=== PATIENT | female | born 1995 | race Caucasian/White ===

== ENCOUNTER → 2020-06-03 | Outpatient (CLI) | payer BC ==
--- NOTE | 2020-06-03 13:13 | Diagnostic Imaging Report ---
INDICATION: Assessment during normal . TECHNIQUE: Multiple real-time grayscale images were obtained over the gravid uterus. COMPARISON: None FINDINGS: Single viable intrauterine , currently in a cephalic presentation. Placenta is anterior without previa. Normal amount of amniotic fluid. Visualized anatomical assessment is unremarkable. There is visualization of the kidneys, bladder, stomach, intracranial structures, four-chambered heart, three-vessel cord and insertion site along the spine, appearing unremarkable. Biometrical measurements are as follows: Biparietal 6.22 cm, age 25 weeks 2 days. Head circumference 22.92 cm, age 25 weeks 0 days. Abdominal circumference 20.36 cm, age 25 weeks 0 days. Femur length 4.31 cm, age 24 weeks 1 days. Sonographic estimate age: 24 weeks 6 days. Sonographic estimated date of delivery: 09/17/20. Estimated Weight: 721 gm (+/- 105 gm). LMP percentile: 32%. heart rate: 147 beats per minute. number: 1 of 1. IMPRESSION: 1. Single viable intrauterine , currently in a cephalic presentation. Sonographic estimated age 24 weeks 6 days for estimated date of delivery September 17, 2020. No abnormalities are demonstrated at this time. Dictated by: Dictated on workstation # [id number]
== END ==
LOC: RAD 09:57
PROVIDERS: ATTEND Obstetrics & Gynecology
DX: Z34.02 Encounter for supervision of normal first pregnancy, second trimester (principal); Z3A.24 24 weeks gestation of pregnancy
CPT/HCPCS: 76805

== ENCOUNTER 2020-08-19 12:11 | Outpatient (CLI) | payer BC ==
[~2020-08-19] VITALS: Ht 165.1 cm; Wt 77.0 kg
[2020-08-19 12:45] VITALS: BP 106/66
[2020-08-19 12:52] LABS: BILIRUBIN,URINE NEGATIVE (NEGATIVE); CLARITY,URINE CLEAR; COLOR,URINE YELLOW; GLUCOSE, URINE (UA) NEGATIVE (NEGATIVE); KETONES,URINE NEGATIVE (NEGATIVE); LEUKOCYTE ESTERASE ,URINE 2+ (NEGATIVE); NITRITE,URINE NEGATIVE (NEGATIVE); PH,URINE 7.5 (5-9); PROTEIN,URINE NEGATIVE (NEGATIVE)
[2020-08-19 13:02] LABS: BACTERIA,URINE MODERATE /HPF
[2020-08-19] MEDS ORDERED: NS IV 1000 ML 1,000 ML IV SCH (14:00)
[2020-08-19] MEDS ORDERED: ceFAZolin INJECTION 1,000 MG in WATER (STERILE) FOR INJECTION 10 ML IV ONE (14:00)
[2020-08-19] MEDS ORDERED: ACETAMINOPHEN 500 MG TAB (TYLENOL) PO ONE (14:00)
== END 2020-08-19 16:15 | disposition home or self-care (01) ==
LOC: WSo 12:11 → LDRP 12:13 → WSo 16:15
PROVIDERS: ATTEND Obstetrics & Gynecology
DX: O26.899 Other specified pregnancy related conditions, unspecified trimester (principal); R10.9 Unspecified abdominal pain; Z3A.00 Weeks of gestation of pregnancy not specified
CPT/HCPCS: 81000; 87088; 96361; 96374; G0463; 99213

== ENCOUNTER 2020-09-14 11:03 | Inpatient (IN) | payer BC ==
[2020-09-14] VITALS (15 sets, daily range): BP systolic 112–146; BP diastolic 58–84
[~2020-09-14] VITALS: Ht 162 cm; Wt 78.0 kg
[2020-09-14] MEDS ORDERED: D5 LR IV SOLUTION 1,000 ML IV ONE (12:12)
[2020-09-14 12:47] LABS: BASOPHILS % (AUTO) 0 % (0-10); EOSINOPHILS # (AUTO) 0.2 10^3/uL (0.0-0.3); EOSINOPHILS % (AUTO) 2 % (0-10); HEMATOCRIT 32 % (35-52); LYMPHOCYTES # (AUTO) 1.6 10^3/uL (1.0-4.0); LYMPHOCYTES % (AUTO) 16 % (12-44); MEAN CORPUSCULAR HEMOGLOBIN 26 pg (25-34); MEAN CORPUSCULAR HGB CONC 31 g/dL (32-36); MEAN CORPUSCULAR VOLUME 82 fL (80-99); MONOCYTES # (AUTO) 0.7 10^3/uL (0.0-1.0); MONOCYTES % (AUTO) 7 % (0-12); NEUTROPHILS # (AUTO) 7.6 10^3/uL (1.8-7.8); NEUTROPHILS % (AUTO) 75 % (42-75); PLATELET COUNT 263 10^3/uL (130-400); WHITE BLOOD COUNT 10.2 10^3/uL (4.3-11.0)
[2020-09-14] MEDS ORDERED: AMPICILLIN FOR IV USE 2,000 MG in WATER (STERILE) FOR INJECTION 14.8 ML IV ONE (13:29)
[2020-09-14] MEDS ORDERED: D5 LR IV SOLUTION 1,000 ML IV SCH (13:30)
[2020-09-14 13:39] LABS: BILIRUBIN,URINE NEGATIVE (NEGATIVE); CLARITY,URINE SL CLOUDY; COLOR,URINE YELLOW; GLUCOSE, URINE (UA) NEGATIVE (NEGATIVE); KETONES,URINE NEGATIVE (NEGATIVE); LEUKOCYTE ESTERASE ,URINE 2+ (NEGATIVE); NITRITE,URINE NEGATIVE (NEGATIVE); PROTEIN,URINE NEGATIVE (NEGATIVE)
[2020-09-14] MEDS ORDERED: CATHETER FLUSH 10 ML SYR IV SCH (14:00)
[2020-09-14 14:02] LABS: BACTERIA,URINE MODERATE /HPF; WBC,URINE 25-50 /HPF
--- NOTE | 2020-09-14 14:22 | History & Physical-OB ---
OB - Chief Complaint & HPI Date/Time Date of Admission: Date of Admission: Sep 14, 2020 at 13:59 Date seen by a Provider: Sep 14, 2020 Time Seen by a Provider: 14:10 Chief Complaint/History OB-Reason for Admission/Chief: Onset of Labor Hx : 2 Hx Para: 1 Expected Date of Delivery: Sep 17, 2020 Gestational Age in Weeks: 39 Gestational Age in Days: 4 Other reason for admission: Patient admitted in active labor, has not been seen and missed appointments since end of July. Admission Nurse Assessment Rev: Yes History of Labs O neg Antibody neg RI RPR NR HBsAg NR HIV NR GC neg GBS unknown Allergies and Home Medications Allergies Coded Allergies: No Known Drug Allergies (Unverified , 12/30/10) Home Medications No Active Prescriptions or Reported Meds Patient Home Medication List Home Medication List Reviewed: Yes OB - History Hx of Present Care: Yes Ultrasounds: Normal mid trimester US Obstetrical Complications: None Medical Complications: None Patient Past Medical History N/a Social History/Family History 2nd Hand Smoke Exposure: No OB - Admission Exam Physical Exam Vitals: Vital Signs 09/14/20 11:20 Temp 36.6 Pulse 92 Resp 16 Pulse Ox 98 O2 Delivery Room Air HEENT: NCAT Heart: Rhythm Normal Lungs: Clear Abdomen: Gravid Extremities: Normal Reflexes: Normal Cervical Dilatation: 3cm Effacement: 75% Station: -1 Membranes: Intact Heart Rate: 130's Accelerations: Accelerations Present Decelerations: No Decelerations Short Term Variability: Present Digital Pre Press Operator Variability: Average (6-25) Contractions on Admission: < 5 Minutes Apart Intensity: Mild Labs Laboratory Tests Test 09/14/20 11:15 09/14/20 12:30 Range/Units Urine Color YELLOW Urine Clarity SL CLOUDY Urine pH 6.0 5-9 Urine Specific [place] 1.025 H 1.016-1.022 Urine Protein NEGATIVE NEGATIVE Urine Glucose (UA) NEGATIVE NEGATIVE Urine Ketones NEGATIVE NEGATIVE Urine Nitrite NEGATIVE NEGATIVE Urine Bilirubin NEGATIVE NEGATIVE Urine Urobilinogen 0.2 < = 1.0 MG/DL Urine Leukocyte Esterase 2+ H NEGATIVE Urine RBC (Auto) NEGATIVE NEGATIVE Urine RBC NONE /HPF Urine WBC 25-50 H /HPF Urine Squamous Epithelial Cells 10-25 H /HPF Urine Crystals NONE /LPF Urine Bacteria MODERATE H /HPF Urine Casts NONE /LPF Urine Mucus MODERATE H /LPF Urine Culture Indicated YES White Blood Count 10.2 4.3-11.0 10^3/uL Red Blood Count 3.92 3.80-5.11 10^6/uL Hemoglobin 10.0 L 11.5-16.0 g/dL Hematocrit 32 L 35-52 % Mean Corpuscular Volume 82 80-99 fL Mean Corpuscular Hemoglobin 26 25-34 pg Mean Corpuscular Hemoglobin Concent 31 L 32-36 g/dL Red Cell Distribution Width 14.4 10.0-14.5 % Platelet Count 263 130-400 10^3/uL Mean Platelet Volume 11.0 9.0-12.2 fL Immature Granulocyte % (Auto) 0 % Neutrophils (%) (Auto) 75 42-75 % Lymphocytes (%) (Auto) 16 12-44 % Monocytes (%) (Auto) 7 0-12 % Eosinophils (%) (Auto) 2 0-10 % Basophils (%) (Auto) 0 0-10 % Neutrophils # (Auto) 7.6 1.8-7.8 10^3/uL Lymphocytes # (Auto) 1.6 1.0-4.0 10^3/uL Monocytes # (Auto) 0.7 0.0-1.0 10^3/uL Eosinophils # (Auto) 0.2 0.0-0.3 10^3/uL Basophils # (Auto) 0.0 0.0-0.1 10^3/uL Immature Granulocyte # (Auto) 0.0 0.0-0.1 10^3/uL OB - Assessment/Plan/Diagnosis Assessment Assessment: active labor Admission Dx 24 yo @ 39 weeks Active labor Non compliance- missed appointments GBS unknown Admission Status: Inpatient Order (span 2 midnights) Reason for Inpatient Admission: Active labor at 39 weeks Plan Plan: Expectant Management LEDA ANN DO Sep 14, 2020 14:22
[2020-09-14] MEDS ORDERED: OXYTOCIN PRE-MIX DRIP 500 ML IV ONE ×2 (14:31→17:41)
[2020-09-14] MEDS ORDERED: LIDOCAINE/EPI 2% 1:200,00 (XYLOCAINE) 20 ML VIAL ONE (14:39)
[2020-09-14] MEDS ORDERED: PREN1TAB79 PO (16:32)
[2020-09-14] MEDS: OXYTOCIN PRE-MIX DRIP 500 ML IV SCH ×6 (17:05→21:00)
[2020-09-14] MEDS ORDERED: AMPICILLIN FOR IV USE 1,000 MG in WATER (STERILE) FOR INJECTION 7.4 ML IV SCH (17:30)
[2020-09-14] MEDS ORDERED: TETANUS,DIPTH,PERTUSS P/F (BOOSTRIX) 0.5 ML VIAL IM ONE (17:45)
[2020-09-14] MEDS ORDERED: BENZOCAINE/MENTHOL (DERMOPLAST) 56 ML CAN TP PRN (17:45)
[2020-09-14] MEDS ORDERED: DIBUCAINE 1% OINTMENT 30 GM TUBE TOP PRN (17:45)
[2020-09-14] MEDS ORDERED: MEASLES,MUMPS,RUBELLA 1 EA INJ SQ ONE (17:45)
[2020-09-14] MEDS ORDERED: HYDROcodone/APAP 5 MG/325 MG (LORTAB) TAB PO PRN (17:45)
[2020-09-14] MEDS ORDERED: WITCH HAZEL(TUCKS) 40 EA JAR TOP PRN (17:45)
--- NOTE | 2020-09-14 18:08 | OB Labor & Delivery Record ---
L&D History Date of Service Date of Service: Sep 14, 2020 History Expected Date of Delivery: Sep 17, 2020 Gestational Age in Weeks: 39 Hx : 2 Hx Para: 1 Complications Operative Indications (Cesarea: N/A-Vaginal Delivery Intrapartal Events: None L&D Stage1 Monitors and Tracing Monitor Mode: External Heart Rate: 140 Monitor Decelerations: None Catering And Events Manager Variability: Average (6-10) Short Term Variability: Present Presentation: Vertex Vital Signs VS - Last 72 Hours, by Label 09/14/20 09/14/20 11:20 11:45 Temp 36.6 36.0 Pulse 92 122 Resp 16 16 Pulse Ox 98 100 O2 Delivery Room Air Room Air Rupture of Membranes Spontaneous Ruture of Membrane: Yes Amniotic Membrane Fluid Desc.: Meconium Stained Vaginal Bleeding Description: Normal Show Progress/Notes Patient presented in active labor, she progressed without augmentation to complete and +3 station without any analgesia. L&D Stage2 Stage Two Stage II Date: Sep 14, 2020 Monitors and Tracing Monitor Mode: External Heart Rate: 140 Monitor Accelerations: Uniform Monitor Decelerations: None Snf Variability: Average (6-10) Short Term Variability: Present Position: Right Occiput Anterior Presentation: Vertex Cord Descript/Complications Cord Vessel Description: 3 Vessels Delivery Type Delivery Method: Spontaneous Vaginal Anterior Shoulder: Left Episiotomy/Perineal Laceration Episiotomy Description: Periurethral Extnsion/lac, Perineal Extension/lac, 2nd degree Degree (describe repair) Lacerations bilateral periurethral and midline perineal repaired using 3-0 rapide suture in usual fashion. Condition of Delivery 1 minute Comment: 8 5 minute Comment: 9 Notes Live female weight 7lbs 14 oz Condition of Condition of : Living Exam: No Observed Abnormalities Resuscitation Resuscitation: N/A - Spontaneous Resp L&D Stage3 Stage Three Stage III Date: Sep 14, 2020 Pictocin Pitocin Administration Comment: 30 mu wide open after delivery of placenta Placenta Delivery Placenta Delivery: Spontaneous Delivery Summary Summary Estimated blood loss (mL): 350 Attending at delivery: Leda Ann DO Condition of Delivery Examined: Cervix Examined, Uterus Explored Post Hemorrhage: No Condition of Mother stable Condition of Infant (s) stable LEDA ANN DO Sep 14, 2020 18:08
--- NOTE | 2020-09-14 18:10 | Discharge Inst-Women's Service ---
Discharge Inst-Women's Serv Depart Medication/Instructions New, Converted or Re-Newed RX: RX on Chart Final Diagnosis PPD 1 NVD Problems Reviewed?: Yes Consults/Follow Up Additional Follow Up: Yes Orders/Referrals Dr. Ann in 6 weeks Activity Activity: Activity as Tolerated Driving Instructions: No Driving for 1 Week NO SMOKING: NO SMOKING Nothing Inside Vagina: No Douching, No [place], No Tampons Diet Discharge Diet: No Restrictions Symptoms to Report to : Bleeding Excessive, Pain Increased, Fever Over 101 Degrees F, Vaginal Bleeding Increase, Questions/Concerns For Any Problems or Questions: Contact Your Physician LEDA ANN DO Sep 14, 2020 18:10
[2020-09-14] MEDS ORDERED: DIBU30OI TOP (18:11)
[2020-09-14] MEDS ORDERED: ACHD5005 PO (18:11)
[2020-09-14] MEDS ORDERED: BENZ78AE5 TP (18:11)
[2020-09-14] MEDS ORDERED: DCS100C PO (18:11)
[2020-09-14] MEDS ORDERED: IBUP-844 PO (18:11)
[2020-09-14] MEDS: IBUPROFEN 600 MG (MOTRIN) TAB PO SCH ×2 (18:30→23:44)
[2020-09-14 19:50] LABS: AMPHETAMINE SCREEN, URINE NEGATIVE (NEGATIVE); BARBITURATE SCREEN URINE NEGATIVE (NEGATIVE); BENZODIAZEPINES SCREEN URINE NEGATIVE (NEGATIVE); CANNABINOID SCREEN, URINE NEGATIVE (NEGATIVE); COCAINE SCREEN URINE NEGATIVE (NEGATIVE); METHADONE STAT NEGATIVE (NEGATIVE); METHAMPHETAMINE SCREEN URINE S NEGATIVE (NEGATIVE); OPIATE SCREEN URINE NEGATIVE (NEGATIVE); OXYCODONE STAT NEGATIVE (NEGATIVE); PROPOXYPHENE STAT NEGATIVE (NEGATIVE); TRICYCLIC ANTIDEPRESSANTS SCRE NEGATIVE (NEGATIVE)
[2020-09-14] MEDS: DOCUSATE SODIUM 100 MG (COLACE) CAP PO SCH (20:02)
[2020-09-14] MEDS: D5W 1000 ML IV SOLUTION 1,000 ML IV SCH ×2 (20:57→20:58)
[2020-09-14] MEDS: CATHETER FLUSH 10 ML SYR IV SCH (21:03)
[2020-09-15 04:48] VITALS: BP 112/72
[2020-09-15] MEDS: IBUPROFEN 600 MG (MOTRIN) TAB PO SCH ×3 (04:48→17:16)
[2020-09-15 05:13] LABS: BASOPHILS % (AUTO) 0 % (0-10); EOSINOPHILS # (AUTO) 0.1 10^3/uL (0.0-0.3); EOSINOPHILS % (AUTO) 1 % (0-10); HEMATOCRIT 27 % (35-52); HEMOGLOBIN 8.3 g/dL (11.5-16.0); LYMPHOCYTES # (AUTO) 2.1 10^3/uL (1.0-4.0); LYMPHOCYTES % (AUTO) 17 % (12-44); MEAN CORPUSCULAR HEMOGLOBIN 25 pg (25-34); MEAN CORPUSCULAR HGB CONC 31 g/dL (32-36); MEAN CORPUSCULAR VOLUME 82 fL (80-99); MEAN PLATELET VOLUME 10.9 fL (9.0-12.2); MONOCYTES # (AUTO) 0.9 10^3/uL (0.0-1.0); MONOCYTES % (AUTO) 7 % (0-12); NEUTROPHILS # (AUTO) 9.1 10^3/uL (1.8-7.8); NEUTROPHILS % (AUTO) 75 % (42-75); PLATELET COUNT 238 10^3/uL (130-400); WHITE BLOOD COUNT 12.2 10^3/uL (4.3-11.0)
--- NOTE | 2020-09-15 07:11 | Progress Note ---
Subjective Time Seen by a Provider: 06:54 Subjective/Events-last exam Yudith Fulton is a 24 year old G2 now P2 who presented to L&D in active labor. Today, the patient is reporting minimal pain that is well controlled with medications. The patient is ambulating well. The patient is and pumping. The patient has not had a BM and has noted scant lochia. Review of Systems General: No Chills, No Night Sweats, No Fatigue, No Malaise, No Appetite, No Other HEENT: No Head Aches, No Visual Changes, No Eye Pain, No Ear Pain, No Dysphasia, No Sinus Congestion, No Post Nasal Drip, No Sore Throat, No Other Pulmonary: No Dyspnea, No Cough, No Pleuritic Chest Pain, No Other Cardiovascular: No: Chest Pain, Palpitations, Orthopnea, Paroxysmal Noc. Dyspnea, Edema, Lt Headedness, Other Gastrointestinal: No: Nausea, Vomiting, Abdominal Pain, Diarrhea, Constipation, Melena, Hematochezia, Other Genitourinary: No Dysuria, No Frequency, No Incontinence, No Hematuria, No Retention, No Other Musculoskeletal: No: other, neck pain, shoulder pain, arm pain, back pain, hand pain, leg pain, foot pain Neurological: No: Weakness, Numbness, Incoordination, Change in speech, Confusion, Seizures, Other Objective Exam Last Set of Vital Signs Vital Signs Date Time Temp Pulse Resp B/P (MAP) Pulse Ox O2 Delivery O2 Flow Rate FiO2 09/15/20 04:48 36.3 67 18 112/72 (85) 99 Room Air Capillary Refill : Less Than 3 Seconds I&O Intake and Output 09/15/20 00:00 Intake Total 3129.6 ml Balance 3129.6 ml Intake Oral 300 ml IV Total 2829.6 ml # Voids 1 Daily Weight Change No General: Alert, Oriented X3 HEENT: Atraumatic Lungs: Clear to Auscultation Heart: Regular Rate, Normal S1, Normal S2 Abdomen: Normal Bowel Sounds Extremities: No Clubbing, No Cyanosis, No Edema Skin: No Rashes Neuro: Normal Gait, Normal Speech Psych/Mental Status: Mental Status NL Results Lab Laboratory Tests 09/14/20 11:15: Urine Color YELLOW, Urine Clarity SL CLOUDY, Urine pH 6.0, Urine Specific [place] 1.025H, Urine Protein NEGATIVE, Urine Glucose (UA) NEGATIVE, Urine Ketones NEGATIVE, Urine Nitrite NEGATIVE, Urine Bilirubin NEGATIVE, Urine Urobilinogen 0.2, Urine Leukocyte Esterase 2+H, Urine RBC (Auto) NEGATIVE, Urine RBC NONE, Urine WBC 25-50H, Urine Squamous Epithelial Cells 10-25H, Urine Crystals NONE, Urine Bacteria MODERATEH, Urine Casts NONE, Urine Mucus MODERATEH , Urine Culture Indicated YES, Urine Opiates Screen NEGATIVE, Urine Oxycodone Screen NEGATIVE, Urine Methadone Screen NEGATIVE, Urine Propoxyphene Screen NEGATIVE, Urine Barbiturates Screen NEGATIVE, Ur Tricyclic Antidepressants Screen NEGATIVE, Urine Phencyclidine Screen NEGATIVE, Urine Amphetamines Screen NEGATIVE, Urine Methamphetamines Screen NEGATIVE, Urine Benzodiazepines Screen NEGATIVE, Urine Cocaine Screen NEGATIVE, Urine Cannabinoids Screen NEGATIVE 09/14/20 12:30: White Blood Count 10.2, Red Blood Count 3.92, Hemoglobin 10.0L, Hematocrit 32L, Mean Corpuscular Volume 82, Mean Corpuscular Hemoglobin 26, Mean Corpuscular Hemoglobin Concent 31L, Red Cell Distribution Width 14.4, Platelet Count 263, Mean Platelet Volume 11.0, Immature Granulocyte % (Auto) 0, Neutrophils (%) (Aut o) 75, Lymphocytes (%) (Auto) 16, Monocytes (%) (Auto) 7, Eosinophils (%) (Auto) 2, Basophils (%) (Auto) 0, Neutrophils # (Auto) 7.6, Lymphocytes # (Auto) 1.6, Monocytes # (Auto) 0.7, Eosinophils # (Auto) 0.2, Basophils # (Auto) 0.0, Immature Granulocyte # (Auto) 0.0 09/15/20 04:58: White Blood Count 12.2H, Red Blood Count 3.30L, Hemoglobin 8.3L, Hematocrit 27L, Mean Corpuscular Volume 82, Mean Corpuscular Hemoglobin 25, Mean Corpuscular Hemoglobin Concent 31L, Red Cell Distribution Width 14.3, Platelet Count 238, Mean Platelet Volume 10.9, Immature Granulocyte % (Auto) 0, Neutrophils (%) (Auto) 75, Lymphocytes (%) (Auto) 17, Monocytes (%) (Auto) 7, Eosinophils (%) (Auto) 1, Basophils (%) (Auto) 0, Neutrophils # (Auto) 9.1H, Lymphocytes # (Auto) 2.1, Monocytes # (Auto) 0.9, Eosinophils # (Auto) 0.1, Basophils # (Auto) 0.0, Immature Granulocyte # (Auto) 0.1 Assessment/Plan Assessment/Plan Assess & Plan/Chief Complaint PP day #1 s/p ELLA SALAS MED STUDENT Sep 15, 2020 07:11
--- NOTE | 2020-09-15 07:29 | Postpartum Progress Note ---
Note Note Day # 1 Subjective: Patient is without complaints. Ambulating, voiding. Tolerating a regular diet without nausea or vomiting. Normal lochia. Pain is well controlled with oral pain medications. Objective: Physical Exam: General - Alert and oriented, no apparent distress Abdomen - Soft, appropriately tender to palpation, non-distended, fundus firm at umbilicus Extremities - no edema, negative Larry's bilaterally Assessment: PPD 1 NVD Acute blood loss anemia Plan: Routine care. Encourage breast feeding. Encourage ambulation. Ferrous sulfate supplementation. Plan for discharge today or tomorrow Vitals - Labs Vital Signs - I&O Vital Signs Date Time Temp Pulse Resp B/P (MAP) Pulse Ox O2 Delivery O2 Flow Rate FiO2 09/15/20 04:48 36.3 67 18 112/72 (85) 99 Room Air 09/14/20 23:42 36.2 77 18 124/67 (86) 99 Room Air 09/14/20 19:59 36.7 76 18 112/58 (76) 98 Room Air 09/14/20 19:30 98 Room Air 09/14/20 18:30 77 146/63 (90) 09/14/20 18:15 84 130/62 (84) 09/14/20 18:00 76 123/64 (83) 09/14/20 17:45 75 16 115/67 (83) 09/14/20 17:30 75 123/75 (91) 09/14/20 17:15 68 123/64 (83) 09/14/20 16:30 63 16 124/84 (97) 09/14/20 16:15 09/14/20 16:00 66 16 119/75 (90) 09/14/20 15:45 09/14/20 15:30 60 122/79 (93) 09/14/20 15:00 121/76 (91) 09/14/20 14:30 36.0 68 16 122/79 (93) 09/14/20 11:45 36.0 122 16 100 Room Air 09/14/20 11:20 36.6 92 16 98 Room Air I & O 09/15/20 07:00 Intake Total 3129.6 ml Balance 3129.6 ml Labs Laboratory Tests 09/14/20 11:15: Urine Color YELLOW, Urine Clarity SL CLOUDY, Urine pH 6.0, Urine Specific [place] 1.025H, Urine Protein NEGATIVE, Urine Glucose (UA) NEGATIVE, Urine Ketones NEGATIVE, Urine Nitrite NEGATIVE, Urine Bilirubin NEGATIVE, Urine Urobilinogen 0.2, Urine Leukocyte Esterase 2+H, Urine RBC (Auto) NEGATIVE, Urine RBC NONE, Urine WBC 25-50H, Urine Squamous Epithelial Cells 10-25H, Urine Crystals NONE, Urine Bacteria MODERATEH, Urine Casts NONE, Urine Mucus MODERATEH , Urine Culture Indicated YES, Urine Opiates Screen NEGATIVE, Urine Oxycodone Screen NEGATIVE, Urine Methadone Screen NEGATIVE, Urine Propoxyphene Screen NEGATIVE, Urine Barbiturates Screen NEGATIVE, Ur Tricyclic Antidepressants Screen NEGATIVE, Urine Phencyclidine Screen NEGATIVE, Urine Amphetamines Screen NEGATIVE, Urine Methamphetamines Screen NEGATIVE, Urine Benzodiazepines Screen NEGATIVE, Urine Cocaine Screen NEGATIVE, Urine Cannabinoids Screen NEGATIVE 09/14/20 12:30: White Blood Count 10.2, Red Blood Count 3.92, Hemoglobin 10.0L, Hematocrit 32L, Mean Corpuscular Volume 82, Mean Corpuscular Hemoglobin 26, Mean Corpuscular Hemoglobin Concent 31L, Red Cell Distribution Width 14.4, Platelet Count 263, Mean Platelet Volume 11.0, Immature Granulocyte % (Auto) 0, Neutrophils (%) (Auto) 75, Lymphocytes (%) (Auto) 16, Monocytes (%) (Auto) 7, Eosinophils (%) (Auto) 2, Basophils (%) (Auto) 0, Neutrophils # (Auto) 7.6, Lymphocytes # (Auto) 1.6, Monocytes # (Auto) 0.7, Eosinophils # (Auto) 0.2, Basophils # (Auto) 0.0, Immature Granulocyte # (Auto) 0.0 09/15/20 04:58: White Blood Count 12.2H, Red Blood Count 3.30L, Hemoglobin 8.3L, Hematocrit 27L, Mean Corpuscular Volume 82, Mean Corpuscular Hemoglobin 25, Mean Corpuscular Hemoglobin Concent 31L, Red Cell Distribution Width 14.3, Platelet Count 238, Mean Platelet Volume 10.9, Immature Granulocyte % (Auto) 0, Neutrophils (%) (Auto) 75, Lymphocytes (%) (Auto) 17, Monocytes (%) (Auto) 7, Eosinophils (%) (Auto) 1, Basophils (%) (Auto) 0, Neutrophils # (Auto) 9.1H, Lymphocytes # (Auto) 2.1, Monocytes # (Auto) 0.9, Eosinophils # (Auto) 0.1, Basophils # (Auto) 0.0, Immature Granulocyte # (Auto) 0.1 LEDA ANN DO Sep 15, 2020 07:28
[2020-09-15 08:52] VITALS: BP 110/64
[2020-09-15] MEDS: PRENATAL VITAMIN 1 EA TAB PO SCH (08:54)
[2020-09-15] MEDS: FERROUS SULF 325 MG (IRON) TAB PO SCH (08:54)
[2020-09-15] MEDS: DOCUSATE SODIUM 100 MG (COLACE) CAP PO SCH ×2 (08:54→20:52)
[2020-09-15 11:20] VITALS: BP 123/66
[2020-09-15 15:30] VITALS: BP 132/59
[2020-09-15 20:53] VITALS: BP 117/62
[2020-09-15] MEDS: CATHETER FLUSH 10 ML SYR IV SCH (22:00)
[2020-09-16] MEDS: IBUPROFEN 600 MG (MOTRIN) TAB PO SCH ×3 (00:09→12:23)
[2020-09-16 00:10] VITALS: BP 116/74
[2020-09-16 04:19] VITALS: BP 111/65
[2020-09-16] MEDS: CATHETER FLUSH 10 ML SYR IV SCH (06:00)
[2020-09-16] MEDS: PRENATAL VITAMIN 1 EA TAB PO SCH (06:26)
--- NOTE | 2020-09-16 08:30 | Postpartum Progress Note ---
Note Note Day # 2 Subjective: Patient is without complaints. Ambulating, voiding. Tolerating a regular diet without nausea or vomiting. Normal lochia. Pain is well controlled with oral pain medications. Objective: Physical Exam: General - Alert and oriented, no apparent distress Abdomen - Soft, appropriately tender to palpation, non-distended, fundus firm at umbilicus Extremities - no edema, negative Larry's bilaterally Assessment: PPD 2 NVD Acute blood loss anemia Plan: Routine care. Encourage breast feeding. Encourage ambulation. Ferrous sulfate supplementation. Plan for discharge today Vitals - Labs Vital Signs - I&O Vital Signs Date Time Temp Pulse Resp B/P (MAP) Pulse Ox O2 Delivery O2 Flow Rate FiO2 09/16/20 04:19 36.4 89 16 111/65 (80) 98 Room Air 09/16/20 00:10 36.5 76 16 116/74 (88) 99 Room Air 09/15/20 20:53 36.2 79 16 117/62 (80) 100 Room Air 09/15/20 20:00 Room Air 09/15/20 15:30 36.7 81 16 132/59 (83) 97 Room Air 09/15/20 11:20 36.6 99 18 123/66 (85) Room Air 09/15/20 08:52 36.3 87 18 110/64 (79) 98 Room Air Labs Microbiology 09/14/20 Urine Culture - Final, Complete 3 or more isolates LEDA ANN DO Sep 16, 2020 08:30
[2020-09-16 09:30] VITALS: BP 128/70
[2020-09-16] MEDS: FERROUS SULF 325 MG (IRON) TAB PO SCH (09:30)
[2020-09-16] MEDS: DOCUSATE SODIUM 100 MG (COLACE) CAP PO SCH (09:30)
[2020-09-16 12:50] VITALS: BP 128/70
== END 2020-09-16 12:50 | disposition home or self-care (01) | DRG 806 ==
LOC: WSo 11:03 → LDRP 11:04 → WSo 13:26 → LDRP 13:59
PROVIDERS: ADMIT Obstetrics & Gynecology; ATTEND Obstetrics & Gynecology
PROC: 10E0XZZ Delivery of Products of Conception, External Approach (ICD-10-PCS; principal; 2020-09-14)
PROC: 0KQM0ZZ Repair Perineum Muscle, Open Approach (ICD-10-PCS; 2020-09-14)
DX: O70.1 Second degree perineal laceration during delivery (principal); D62 Acute posthemorrhagic anemia; Z37.0 Single live birth; Z3A.39 39 weeks gestation of pregnancy; Z91.19 Patient's noncompliance with other medical treatment and regimen; O71.82 Other specified trauma to perineum and vulva; O90.81 Anemia of the puerperium
CPT/HCPCS: 36415; 80306; 81000; 83033; 85025; 86850; 86900; 86901; 87088; 99212

== ENCOUNTER 2021-03-30 02:41 | Emergency (ER) | payer BC ==
[~2021-03-30] VITALS: Ht 165 cm; Wt 65.0 kg
[~2021-03-30 02:41] MED LIST: ACHD5005 PO; BENZ78AE5 TP; DIBU30OI TOP; DOCU-239 PO; IBUP-844 PO; PREN1TAB79 PO
--- NOTE | 2021-03-30 03:14 | ED GI ---
General Chief Complaint: Rect Problems Stated Complaint: POSS RECTAL PROLAPSE Source of Information: Patient Exam Limitations: No Limitations History of Present Illness Date Seen by Provider: Mar 30, 2021 Time Seen by Provider: 02:55 Initial Comments Patient to the ER by private conveyance from home with chief complaint that since about 5:00 yesterday morning she started noticing a protrusion from her rectum about 1 cm painful but not bleeding. She is not sure if she is having her prolapse or hemorrhoids. She is never had it checked out before. She had her last bowel movement few hours ago yesterday evening. She does not endorse any constipation, anal insertive intercourse or other similar activities. No ab dominal surgeries. No significant medical history. She has not done anything for it yet. Allergies and Home Medications Allergies Coded Allergies: No Known Drug Allergies (Unverified , 12/30/10) Patient Home Medication List Home Medication List Reviewed: Yes Benzocaine/Menthol (Dermoplast Pain Relieving [place]) 78 Gm Aerosol, 0 EA TP UD PRN for PAIN- SEE INSTRUCTIONS Prescribed by: LEDA ANN on 09/14/201810 Dibucaine (Dibucaine) 30 Gm Oint, 0 GM TOP UD PRN for PAIN- SEE INSTRUCTIONS Prescribed by: LEDA ANN on 09/14/201810 Docusate Sodium (Dok) 100 Mg Capsule, 100 MG PO BID PRN for CONSTIPATION-1ST LINE Prescribed by: LEDA ANN on 09/14/201810 Hydrocodone Bit/Acetaminophen (HYDROcodone/APAP 5 MG/325 MG TAB) 1 Tab Tab, 1 EA PO Q4H PRN for PAIN-MODERATE (5-7) Prescribed by: LEDA ANN on 09/14/201810 Ibuprofen (Ibu) 600 Mg Tablet, 600 MG PO Q6HR Prescribed by: LEDA ANN on 09/14/201810 Vit W-Ca,Fe,FA(<1 mg) ( Vitamins) 1 Each Tablet, 1 EACH PO DAILY, (Reported) Entered as Reported by: HENRIQUE MCKEON on 09/14/20 1632 Review of Systems Review of Systems Constitutional: No chills, No diaphoresis EENTM: No Blurred Vision, No Double Vision Respiratory: Denies Cough, Denies Shortness of Air Cardiovascular: Denies Chest Pain, Denies Lightheadedness Gastrointestinal: See HPI; Denies Constipated, Denies Diarrhea Genitourinary: Denies Burning, Denies Discharge, Denies Drainage Musculoskeletal: No back pain, No joint pain Past Czgoptg-Zougab-Hqzmea Hx Patient Social History Tobacco Use?: No Use of E-Cig and/or Vaping dev: No Physical Exam Vital Signs Capillary Refill : Height/Weight/BMI Height: '" Weight: lbs. oz. kg; 29.72 BMI Method: General Appearance: WD/WN, no apparent distress HEENT: PERRL/EOMI, normal ENT inspection, TMs normal, pharynx normal Neck: non-tender, full range of motion, supple, normal inspection Respiratory: no respiratory distress, no accessory muscle use Cardiovascular: normal peripheral pulses, regular rate, rhythm Peripheral Pulses: 2+ Dorsalis Pedis (R), 2+ Left Dors-Pedis (L) Gastrointestinal: non tender, soft Rectal: hemorrhoids (12 o'clock position there is a external hemorrhoid small less than 1 cm infarcted), tenderness Progress/Results/Core Measures Progress Progress Note : Time: 04:16 Progress Note Counseled management of infarcted hemorrhoids. Offered to do a lidocaine and scalpel decompression. Patient declined this. We will encourage her to do sitz bath's and pramoxine and hydrocortisone. Departure Impression Primary Impression: Hemorrhoids Qualified Codes: K64.5 - Perianal venous thrombosis Disposition: 01 HOME, SELF-CARE Condition: Stable Departure-Patient Inst. Decision time for Depature: 04:28 Referrals: NO,LOCAL PHYSICIAN (PCP/Family) Primary Care Physician Patient Instructions: Hemorrhoids (DC) Add. Discharge Instructions: Sitz bath as necessary. Pramoxine for itching. Hydrocortisone for shrinking the hemorrhoid episode goes away sooner. If the pain is unbearable you can follow-up with your primary care doctor to have them lanced. You can get a combination of hydrocortisone and pramoxine in Proctofoam. All discharge instructions reviewed with patient and/or family. Voiced understanding. MARTÍNEZ SANTIAGO Mar 30, 2021 03:13
[2021-03-30 04:36] VITALS: BP 116/72
== END 2021-03-30 04:35 | disposition home or self-care (01) ==
LOC: EDUNIT# 02:41 → ER 02:49
DX: K64.4 Residual hemorrhoidal skin tags (principal)
CPT/HCPCS: 99281

== ENCOUNTER 2021-07-16 23:58 | Emergency (ER) | payer BC ==
[~2021-07-16] VITALS: Ht 160 cm; Wt 68.8 kg
--- NOTE | 2021-07-17 00:15 | ED EENT ---
History of Present Illness General Chief Complaint: Dental Problems/Pain Stated Complaint: JAW PAIN R SIDE,TROUBLE SPEAKING/EATING Source: patient Exam Limitations: no limitations History of Present Illness Date Seen by Provider: Jul 17, 2021 Time Seen by Provider: 00:10 Initial Comments Patient is a 25-year-old female who presents to the emergency department with a chief complaint of sore throat, right-sided jaw pain pain under her right jaw onset about 24 hours ago. She states she cannot open her mouth very far. She denies any fevers or chills, runny nose or congestion. She states symptoms started rather suddenly. She went to "pop" her jaw on Saturday and then throughout the night on Saturday started having progressive pain -although the pain is not in the bones she states its in her throat. She denies earache. No rashes. No sick contacts. She does have 2 children at home. Both of which are well. She has been taking ibuprofen 600 mg for pain. Last dose was around 2 PM. All other review of systems reviewed and negative except as stated. Timing/Duration: abrupt, yesterday Severity: moderate Location: throat Prearrival Treatment: over the counter meds (ibuprofen 600mg 2.5 hours ago) Allergies and Home Medications Allergies Coded Allergies: No Known Drug Allergies (Unverified , 12/30/10) Patient Home Medication List Home Medication List Reviewed: Yes Benzocaine/Menthol (Dermoplast Pain Relieving [place]) 78 Gm Aerosol, 0 EA TP UD PRN for PAIN- SEE INSTRUCTIONS Prescribed by: LEDA ANN on 09/14/201810 Dibucaine (Dibucaine) 30 Gm Oint, 0 GM TOP UD PRN for PAIN- SEE INSTRUCTIONS Prescribed by: LEDA ANN on 09/14/201810 Docusate Sodium (Dok) 100 Mg Capsule, 100 MG PO BID PRN for CONSTIPATION-1ST LINE Prescribed by: LEDA ANN on 09/14/201810 Hydrocodone Bit/Acetaminophen (HYDROcodone/APAP 5 MG/325 MG TAB) 1 Tab Tab, 1 EA PO Q4H PRN for PAIN-MODERATE (5-7) Prescribed by: LEDA ANN on 09/14/201810 Ibuprofen (Ibu) 600 Mg Tablet, 600 MG PO Q6HR Prescribed by: LEDA ANN on 09/14/201810 Vit W-Ca,Fe,FA(<1 mg) ( Vitamins) 1 Each Tablet, 1 EACH PO BRUNILDA Y, (Reported) Entered as Reported by: HENRIQUE MCKEON on 09/14/20 1632 Review of Systems Review of Systems Constitutional: see HPI Eyes: No Symptoms Reported Ears: No Symptoms Reported Nose: no symptoms reported Mouth: no symptoms reported Throat: pain, swelling, painful swallowing Respiratory: no symptoms reported Cardiovascular: no symptoms reported Gastrointestinal: no symptoms reported Musculoskeletal: no symptoms reported Skin: no symptoms reported Neurological: No Symptoms Reported All Other Systems Reviewed Negative Unless Noted: Yes Past Ornrwkc-Qtjion-Stphln Hx Immunizations Up To Date First/Initial COVID19 Vaccinat: N/A Physical Exam Vital Signs Vital Signs - First Documented 07/17/21 00:04 Temp 36.5 Pulse 70 Resp 18 B/P (MAP) 131/89 (103) Pulse Ox 100 O2 Delivery Room Air Height, Weight, BMI Height: '" Weight: lbs. oz. kg; 23.00 BMI Method: General Appearance: WD/WN, no apparent distress Eyes: bilateral eye normal inspection, bilateral eye PERRL, bilateral eye EOMI Ears: bilateral ear auricle normal, bilateral ear canal normal, bilateral ear TM normal Nose: normal inspection Mouth/Throat: normal mouth inspection, pharynx swelling (Right-sided greater than left), pharynx tenderness, trismus, other (Significant erythema in the posterior pharynx, more prominent on the right some fullness noted without uvu lar deviation no large appreciable peritonsillar abscess observed) Neck: full range of motion, normal inspection, lymphadenopathy (R) (Submandibular lymphadenopathy, tender to palpation) Cardiovascular: regular rate, rhythm Respiratory: lungs clear, normal breath sounds, no respiratory distress, no accessory muscle use Neurologic/Psychiatric: alert, normal mood/affect, oriented x 3 Skin: normal color, warm/dry Progress/Results/Core Measures Results/Orders Lab Results Laboratory Tests Test 07/17/21 00:20 Range/Units Group A Streptococcus Screen NEGATIVE NEGATIVE My Orders Orders - ERNIE KRISHNAN MD Rapid Strep A Screen (07/17/21 00:14) Penicillin G Proc/Kyle 1.2 Mu (Bicillin (07/17/21 01:00) Rx-Hydrocodone/Apap 5-325 Mg (Rx-Vicodin (07/17/21 01:00) Vital Signs/I&O 07/17/21 00:04 Temp 36.5 Pulse 70 Resp 18 B/P (MAP) 131/89 (103) Pulse Ox 100 O2 Delivery Room Air Progress Progress Note : Time: 01:07 Progress Note Patient seen and examined, no fever. Significant tenderness with swelling she has evidence of pharyngitis with fullness on the right, not significant, I do not believe there is enough swelling to warrant incision and drainage of a peritonsillar abscess at this point. She does not have a lot of tonsillar exudate. She has swelling. Airway is open. Nontoxic in appearance. Her group A strep screen was negative. We will go ahead and treat her however with a shot of Bicillin 1,200,000 units. Hydrocodone given for pain. Strict return precautions encouraged. Patient verbalized understanding. All questions are sought and answered. Patient stable for discharge Departure Impression Primary Impression: Pharyngitis Qualified Codes: J02.9 - Acute pharyngitis, unspecified Disposition: HOME, SELF-CARE Condition: Stable Departure-Patient Inst. Decision time for Depature: 01:09 Referrals: LEDA BOX MD NO,LOCAL PHYSICIAN (PCP) Primary Care Physician Patient Instructions: Sore Throat, Adult ED Add. Discharge Instructions: We have treated you for pharyngitis/tonsillitis with a shot of penicillin this evening. You should not have to take any more antibiotic medications. Monitor your symptoms over the next 24 to 48 hours. If you are having worsening throat pain, worsening difficulty swallowing you will need to come back to the emergency department to be reevaluated or you can follow-up with Dr. Box, ENT doctor. His contact information is provided. You can continue to take ibuprofen, 600 mg every 6 hours with food as needed for pain. Warm salt water gargles will also help with inflammation and swelling. Scripts Hydrocodone/Acetaminophen (Hydrocodone-Acetamin 5-325 mg) 5 Mg-325 Mg Tablet 1 TAB PO Q6H PRN for PAIN-MODERATE (5-7), #8 TAB Prov: ERNIE KRISHNAN MD 07/17/21 ERNIE KRISHNAN MD Jul 17, 2021 00:15
[2021-07-17] MEDS ORDERED: PEN G PROC/BENZATH 1.2 M UNITS/2 ml (BICILLIN C-R) SYR IM ONE (01:00)
[2021-07-17] MEDS ORDERED: ACHD5005 PO (01:11)
[2021-07-17 01:23] VITALS: BP 122/81
== END 2021-07-17 01:23 | disposition home or self-care (01) ==
LOC: EDUNIT# 23:58 → ER 07-17
DX: J02.9 Acute pharyngitis, unspecified (principal)
CPT/HCPCS: 87430; 99284